=== PATIENT | female | born 1980 | race Caucasian/White ===

== ENCOUNTER 2017-07-23 09:34 | Day surgery (SDC) | payer BC ==
[~2017-07-23] VITALS: Ht 154.9 cm; Wt 78.5 kg
[~2017-07-23 09:34] MED LIST: BUSPAR5 MG PO; FORMULA TD; LEVONO-E ESTRA1 EACH PO; PREVACID30 MG PO; TOPAMAX50 MG PO; VOLTAREN 1% GE100 GM TP; ZEBUTAL 50-3251 EACH PO; [UNRECOGNIZED DRUG - OTHER] TD
[2017-07-23 11:01] VITALS: BP 100/53
[2017-07-23] MEDS ORDERED: IBUPROFEN800 MG PO (13:34)
[2017-07-23] MEDS ORDERED: HYDROCODON-ACE1 EAC9 PO (13:34)
[2017-07-23 15:00] VITALS: BP 122/90
[2017-07-23 15:58] VITALS: BP 120/73
[2017-07-23 18:00] VITALS: BP 120/63
== END 2017-07-23 18:00 | disposition home or self-care (01) ==
LOC: SDC 09:34
DX: N94.6 Dysmenorrhea, unspecified (principal); N92.0 Excessive and frequent menstruation with regular cycle; N80.0 Endometriosis of uterus; N80.3 Endometriosis of pelvic peritoneum; G43.909 Migraine, unspecified, not intractable, without status migrainosus; F17.210 Nicotine dependence, cigarettes, uncomplicated; Z88.0 Allergy status to penicillin; Z88.8 Allergy status to other drugs, medicaments and biological substances
CPT/HCPCS: 88307; J1170; J1580; J2250; J2405; J2710; J2765; J3010; J7050